=== PATIENT | male | born 1975 | race Two or more races ===

== ENCOUNTER 2020-12-23 13:23 | Emergency (ER) | payer MEDICARE ==
[~2020-12-23] VITALS: Ht 182.9 cm; Wt 102.0 kg
--- NOTE | 2020-12-23 13:57 | NUR ---
Pt BiB REMSA. Put into gown and belongings placed in pt locker. UA obtained and sent. Room is set up for SI precautions. Pt is in bed, bed rails 2x, call light within reach.
[2020-12-23 14:09] VITALS: BP 125/78
--- NOTE | 2020-12-23 14:19 | NUR ---
LATE ENTRY DUE TO PATIENT CARE: JHONY. REPORT RECEIVED FROM EMS. PT WAS FOUND AT [facility] TODAY. PT WAS ON THE FLOOR. POSSIBLLY GLF NO WITNESS. NO TRAUMA. +ETOH. PT DENIES HEAD/NECK/BACK PAIN AT THIS TIME. PT'S AOX4. RESPS EVEN AND UNLABORED. PT DENIES SI/HI IN ROOM.
[2020-12-23 14:20] LABS: BASOPHILS % (AUTO) 1 % (0-1); EOSINOPHILS % (AUTO) 0 % (1-7); LYMPHOCYTES % (AUTO) 33 % (22-44); MEAN CORPUSCULAR HEMOGLOBIN 30.8 pg (27.5-34.5); MEAN CORPUSCULAR HGB CONC 34.5 g/dL (33.2-36.2); MEAN PLATELET VOLUME 8.8 fL (7.4-10.4); MONOCYTES % (AUTO) 8 % (2-9); NEUTROPHILS % (AUTO) 58 % (42-75); PLATELET COUNT 280 x10^3/uL (130-400); RED BLOOD COUNT 5.12 x10^6/uL (4.38-5.82); RED CELL DISTRIBUTION WIDTH 14.6 % (9.4-14.8)
[2020-12-23 14:21] LABS: MD NO
[2020-12-23 14:22] LABS: ALANINE AMINOTRANSFERASE 30 U/L (12-78); ALBUMIN 4.1 g/dL (3.4-5.0); ANION GAP 8 mmol/L (5-15); CALCIUM 7.9 mg/dL (8.5-10.1); CHLORIDE 116 mmol/L (98-107)
[2020-12-23 14:26] LABS: ALKALINE PHOSPHATASE 119 U/L (45-117); BILIRUBIN,TOTAL 0.3 mg/dL (0.2-1.0); TOTAL PROTEIN 7.6 g/dL (6.4-8.2); TROPONIN I 0.025 ng/mL (0.000-0.045)
--- NOTE | 2020-12-23 16:11 | NUR ---
PT SLEEPING IN GURNEY. RESPS EVEN AND UNLABORED.
--- NOTE | 2020-12-23 16:42 | NUR ---
PT AMB TO BR AND BACK TO ROOM WITH STEADY GAIT.
--- NOTE | 2020-12-23 16:58 | NUR ---
BREAK RN: PT AMBULATE TO ROOM. NO ACUTE DISTRESS NOTED. WILL CONTINUE TO MONITOR WHILE PRIMARY RN IS ON BREAK.
--- NOTE | 2020-12-23 17:37 | NUR ---
PT AMB TO BR AND BACK TO ROOM WITH STEADY GAIT.
--- NOTE | 2020-12-23 18:00 | NUR ---
pt stated"i wanna go home. i don't remember what is going on." pt is aox3. edmd will evaluate this pt before dc. edmd notified.
--- NOTE | 2020-12-23 18:44 | NUR ---
Patient given discharge instructions and they have confirmed that they understand the instructions. Patient ambulatory with steady gait.
== END 2020-12-23 18:45 | disposition home or self-care (01) ==
LOC: ED 18:38
DX: F10.220 Alcohol dependence with intoxication, uncomplicated (principal); R07.9 Chest pain, unspecified; R94.31 Abnormal electrocardiogram [ECG] [EKG]; Y90.0 Blood alcohol level of less than 20 mg/100 ml
CPT/HCPCS: 36415; 71045; 80053; 80320; 84484; 85025; 93005; 99285; G0480